=== PATIENT | female | born 1990 | race African-American/Black ===

== ENCOUNTER 2016-09-11 12:52 | Emergency (ER) | payer MEDICARE, OTHER ==
[~2016-09-11] VITALS: Ht 160 cm; Wt 50.0 kg
[~2016-09-11 12:52] MED LIST: LEVO500 PO; VENL-67 PO
[2016-09-11] MEDS ORDERED: HYDROCODONE/ACETAMINOPHEN 5-325 MG TABLET PO ONE (17:30)
[2016-09-11] MEDS ORDERED: PERTUSS(ACELL),DIPH,TET VAC/PF 0.5 ML VIAL IM ONE (17:30)
[2016-09-11 19:25] VITALS: BP 136/78
== END 2016-09-11 19:26 | disposition home or self-care (01) ==
LOC: EMS 12:53
DX: S61.411A Laceration without foreign body of right hand, initial encounter (principal); W45.8XXA Other foreign body or object entering through skin, initial encounter; Y93.89 Activity, other specified; Y92.89 Other specified places as the place of occurrence of the external cause; Y99.8 Other external cause status
CPT/HCPCS: 90471; 90715; 99284